=== PATIENT | female | born 1980 | race Hispanic/Latino ===

== ENCOUNTER 2018-02-22 04:28 | Emergency (ER) | payer SELFPAY ==
[2018-02-22 04:32] VITALS: BMI 31.8
[2018-02-22 04:37] VITALS: RESP 18; TEMP 98.1; O2SAT 100
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
[2018-02-22 05:45] LABS: ARTERIAL BLOOD GAS HCO3 23.7 mmol/L (21-28); ARTERIAL BLOOD GAS HEMOGLOBIN 14.3 g/dL (11.7-17.4); ARTERIAL BLOOD GAS O2 CAPACITY 19.9 mL/dl (16-24); ARTERIAL BLOOD GAS O2 CONTENT 19.9 ML/dl (15-23); ARTERIAL BLOOD GAS O2 SAT 99.9 % (95-98); ARTERIAL BLOOD GAS PCO2 41 mm/Hg (35-45); ARTERIAL BLOOD GAS PH 7.37 (7.35-7.45)
[2018-02-22 06:48] VITALS: BP 123/69; PULSE 85
== END 2018-02-22 06:46 | disposition home or self-care (01) ==
LOC: ED 04:28
DX: J70.5 Respiratory conditions due to smoke inhalation (principal)